=== PATIENT | male | born 1990 | race Caucasian/White ===

== ENCOUNTER 2023-03-25 06:52 | Day surgery (SDC) | payer OTHER, SELFPAY ==
[2023-03-19 15:17] VITALS: BMI 27.9
--- NOTE | 2023-03-25 | DI.RAD.S_ITS ---
PROCEDURE: XR ANKLE LT 2V INDICATIONS: ACHILLES REPAIR TECHNIQUE: Single intraoperative fluoroscopic spot film COMPARISON: None. FINDINGS: Single intraoperative fluoroscopic low resolution spot film shows instrumentation posterior to calcaneus and surgical soft tissue defect IMPRESSION: 1. Fluoroscopic guidance Approved by: Franky Emerson M.D. on 03/25/2023 at 19:37
[2023-03-25 07:46] VITALS: BP 129/86; PULSE 69; RESP 16; TEMP 36.1; O2SAT 98; BMI 27.9
--- NOTE | 2023-03-25 07:57 | PM.PREOP ---
Pre-operative Note Interval Note History & Physical reviewed/Exam performed by Physician: Yes Changes to H&P: No
[2023-03-25] MEDS: LACTATED RINGERS 1,000 ML 42 ML IV (07:59)
--- NOTE | 2023-03-25 08:07 | P.OP_ITS ---
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 He has a small posterior calcaneal enthesophyte and Nae lesion. MRI demonstrated substantial edema at the level of the enthesophyte and calcaneal Achilles insertion. He has had exhaustive conservative treatment for greater than 2 years that has been unable to run and get back to his activities. He has had extensive physical therapy heel lifts periods of boot wear and persistent symptoms. Due to edema at the location of his pain directly at the Achilles insertion on the heel and a negative Silfverskiold I have recommended a secondary Achilles tendon repair with Nae excision and reattachment of the Achilles tendon. The risks and benefits of the procedure have been discussed with the patient and given the opportunity to ask questions. The risks of surgery include but are not limited to infection, wound healing problems, persistence of pain, damage to nerves and blood vessels, generalized dissatisfaction with the procedure, DVT, PE, cardiopulmonary complications and . The patient expressed a thorough understanding of the risks and benefits of surgery and has elected to proceed. Consent was signed in the office. Surgeon: Paula Romero Click Yes if Unassisted: Yes Anesthesia Type: General, Peripheral nerve block and Local Operative Notes Findings: Distal insertional left Achilles tendinosis and enthesophyte, Nae lesion. Closure Type: primary Specimen(s): none sent Prosthetic devices, grafts, tissues, transplants, or devices: Arthrex SpeedBridge 4.75 SwiveLock x4 Estimated Blood Loss (mL): 5 Blood products transfused: none Tourniquet time (min): 39 Procedure in detail: Patient was seen in the preoperative area the site of surgery was marked informed consent confirmed. The patient was seen by the anesthesiologist and a regional block was placed for postoperative pain control. The patient was brought to the operating room and general anesthesia was administered. The patient was then positioned prone on the operative table. All bony prominences were well padded. A well-padded thigh tourniquet was placed. Left lower extremity was prepped and draped in standard sterile fashion a formal time-out procedure was performed confirming the patient's side and site of surgery administration of appropriate preoperative antibiotic. All were in agreement. The Esmarch was used for exsanguination and the tourniquet raised on the thigh to 250 mmHg. Attention was turned to the insertion of the Achilles on the heel. A midline incision was taken down through the skin and full-thickness distally. The Achilles tendon was split. And the paratenon layer was carefully retracted. Through the midline Achilles split tendinosis was shelled out and the accuses was peeled off of the calcaneal insertion. A deep fasciotomy was made to help arrest additional blood supply to the Achilles. The enthesophyte and Nae were exposed. Baby Hohmann retractors were fit medially and laterally to protect you the skin and soft tissue and bony TPS saw was used under fluoroscopic guidance to remove the Nae lesion and decompress the posterior heel. The power rasp was then used to smooth the edges with care taken to round off the medial and lateral corners of the calcaneus to remove a remaining sharp edges. Once this was completed the footprint for the Achilles was mapped out down onto the heel and marked out with 1 cm between the proximal and distal rows for the planned SpeedBridge repair. Four holes for the Spe edBridge were then drilled and tapped. Proximal SwiveLock were applied. Distal Achilles was debrided of tendinosis. No tendon transfer was indicated. The proximal rows were then brought through the distal medial and lateral Achilles stumps and the single stitches were used as spot welds and tied down. Next 1 blue and 1 white from each proximal row were taken across to the distal row and the distal SwiveLock was prepared and secured with the appropriate tension established in resting plantar flexion. The same was done for the remaining anchor securing the distal row of the insertional Achilles repair. This created an excellent secure foot print. Range of motion was tested and was appropriate for the ankle. The Hinojosa test demonstrated good plantar flexion. The midline split of the Achilles was then repaired with 0 Vicryl suture. The wound was carefully irrigated. Tourniquet was released hemostasis was achieved. The paratenon was repaired with 3-0 PDS the subcutaneous tissue with 4-0 Monocryl and the skin with 3-0 nylon suture. 15 cc of 0.25% Marcaine with epinephrine were injected for local anesthetic. A well-padded dressing with Xeroform gauze Webril and a posterior splint in resting plantar flexion was applied. Patient was then awoken from anesthesia and taken to the recovery unit in good condition there were no immediate complications with the procedure. All counts were correct. Complications: none Post-operative Condition: stable Disposition: PACU Plan for aftercare: The patient will be nonweightbearing in the splint for 2 weeks postop. After follow up in clinic sutures will be removed if appropriate the patient will be placed into a walking boot with heel lifts and start gradual progression of weight-bearing through the standard insertional Achilles protocol. Patient will utilize aspirin for DVT prophylaxis.
--- NOTE | 2023-03-25 08:40 | SUR.PREOP ---
Block start time [0850] . Monitoring initiated and maintained throughout procedure. Oxygen and medications given per anesthesiologist instructions. Patient remained stable throughout procedure, no adverse reactions noted. Block end time [0905]. See anesthesia documentation.
[2023-03-25] MEDS: CEFAZOLIN 2 GM/100 ML PREMIX 100 ML IV (09:30)
--- NOTE | 2023-03-25 09:52 | SUR.OPER ---
Prone on padded OR bed, head in foam head support, gel chest rolls, gel pad under knees, pillow under lower RIGHT leg WITH toes free of pressure. RIGHT LEG SECURED WITH CLOTH TAPE AND TOWEL. LEFT LOWER LEG PREPPED AND DRAPED IN FIELD. Arms secured on padded arm boards at <90 degrees abduction. Safety belt at thigh.
[2023-03-25] MEDS: BUPIVACAINE 0.25% (PF) 30 ML, EPINEPHrine 0.15 MG INJ (10:25)
[2023-03-25 10:45] VITALS: BP 120/85; PULSE 59; RESP 18; TEMP 36.4; O2SAT 98
[2023-03-25 10:52] VITALS: BP 116/75; PULSE 63; RESP 15; TEMP 36.6; O2SAT 98
[2023-03-25 11:01] VITALS: BP 118/80; PULSE 57; RESP 15; O2SAT 99
--- NOTE | 2023-03-25 14:33 | SUR.PHASEII ---
Report from Vinay WOODS. Pt in phase II ready for get dressed for discharge and instructions reviewed by Vinay WOODS. IV discharged by Eddie DOMINGUEZ. Pt discharged to home. Pt steady with walker and non-weight bearing.
== END 2023-03-25 11:25 | disposition home or self-care (01) ==
PROVIDERS: Referring Provider Orthopaedic Surgery Foot and Ankle Surgery; Visit Provider Orthopaedic Surgery Foot and Ankle Surgery
PROC: (CPT 27650; principal; 2023-03-25 08:45)
DX: M76.62 Achilles tendinitis, left leg (principal); M92.62 Juvenile osteochondrosis of tarsus, left ankle; S86.012A Strain of left Achilles tendon, initial encounter; X58.XXXA Exposure to other specified factors, initial encounter
CPT/HCPCS: 27654; 28118; 64450; 73600; 76000; C1713; J0171; J0690; J1100; J2250; J2405; J3010; J3490

== ENCOUNTER → 2023-09-15 07:14 | Outpatient (CLI) | payer OTHER, SELFPAY ==
--- NOTE | 2023-09-15 07:15 | DI.MRI.S_ITS ---
PROCEDURE: MR ANKLE LT WO CON INDICATIONS: PAIN IN LEFT ANKLE AND JOINTS OF LEFT FOOT TECHNIQUE: Noncontrast sagittal T1 spin echo and T2 fast spin echo with fat saturation, axial proton density fast spin echo and T2 fast spin echo with fat saturation, coronal T1 spin echo and T2 fast spin echo with fat saturation through the ankle/hindfoot. COMPARISON: [facility], MR, MR ANKLE LEFT WITHOUT CONTRAST, 12/12/2022, 8:01. [facility] [place], CR, XR ANKLE 1 OR 2 VIEWS WEIGHT BEARING LEFT, 02/17/2023, 14:21. FINDINGS: Image quality: Excellent. Bones: Susceptibility artifact and mild marrow edema is present at the posterior calcaneal body and tuberosity secondary to suture fixation of the distal Achilles tendon (07/29). Otherwise, the marrow signal is within normal limits. There is no acute fracture or dislocation. The lateral process of the talus and anterior process of the calcaneus are intact. There is no talar dome osteochondral defect. Joints: The tibiotalar and subtalar joints are preserved without any significant joint effusions. Sinus tarsi: The fat signal around the sinus tarsi is preserved. Syndesmotic ligaments: The anterior and posterior syndesmotic ligaments are preserved. Lateral collateral ligaments: There is thickening of the anterior and posterior talofibular ligaments. The calcaneofibular ligament is preserved. Deltoid ligament: The visualized components of the deltoid ligament, that being the posterior tibiotalar and tibiospring ligaments, are normal. Calcaneonavicular spring ligament: The superomedial component of the calcaneonavicular spring ligament is preserved. Tendons: The Achilles tendon is thickened with intermediate signal, measuring 1.7 cm in the maximum anterior-posterior dimension. Suture anchors fix the insertional Achilles tendon to the calcaneal tuberosity. The flexor and extensor tendons are within normal limits. The peroneal tendons are appropriately situated within the retro malleolar groove. The superficial peroneal retinaculum is intact. Plantar aponeurosis: There is no abnormal thickening of, abnormal intrasubstance involving, or perifascial edema about the plantar aponeurosis Plantar musculature: There are no denervation changes involving the plantar foot musculature. Nerves: The visualized ribs are within normal limits. IMPRESSION: 1. Status post presumed Achilles tendon repair with residual moderate tendinosis and reactive edema in the posterior calcaneus. 2. Prior lateral collateral ligament complex sprains. Dictated by: Gurinder Posey M.D. on 09/15/2023 at 16:46 Approved by: Gurinder Posey M.D. on 09/15/2023 at 17:00
== END ==
LOC: MRI 07:15
PROVIDERS: Referring Provider Orthopaedic Surgery Foot and Ankle Surgery; Visit Provider Orthopaedic Surgery Foot and Ankle Surgery
DX: S83.422A Sprain of lateral collateral ligament of left knee, initial encounter (principal); M25.472 Effusion, left ankle; M25.572 Pain in left ankle and joints of left foot
CPT/HCPCS: 73721

== ENCOUNTER → 2024-09-14 13:46 | Outpatient (CLI) | payer OTHER, SELFPAY ==
--- NOTE | 2024-09-14 13:48 | DI.MRI.S_ITS ---
PROCEDURE: MR ANKLE LT WO CON INDICATIONS: pain in left ankle TECHNIQUE: Noncontrast sagittal T1 spin echo and T2 fast spin echo with fat saturation, axial proton density fast spin echo and T2 fast spin echo with fat saturation, coronal T1 spin echo and T2 fast spin echo with fat saturation through the ankle/hindfoot. COMPARISON: [facility], MR, MR ANKLE LT WO CON, 09/15/2023, 7:32. FINDINGS: Image quality: Excellent. Bones and joints: Surgical anchors are seen in the posterior calcaneus related to Achilles tendon repair. There is surrounding osseous edema in the posterior calcaneus that has mildly decreased when compared to the MRI from 09/15/2023. No fracture line is seen. No hindfoot coalitions. No osteochondral injuries of the talar dome. Medial structures: The deltoid ligament and the spring ligament complex are intact. Mild distal posterior tibialis and flexor digitorum longus tenosynovitis. The flexor hallucis longus tendon is intact. The posterior tibial neurovascular bundle appears normal within the tarsal tunnel, without extrinsic mass effect. Lateral structures: Remote prior low-grade sprains of the anterior talofibular ligament and the calcaneofibular ligament. Posterior talofibular ligament is intact. The anterior and posterior tibiofibular ligaments are intact. Mild peroneus brevis and longus tendinosis. Mildly low lying peroneus brevis muscle belly, a normal variant. The sinus tarsi demonstrates normal fatty signal. Anterior structures: The tibialis anterior, extensor hallucis longus, and extensor digitorum longus tendons appear intact. Posterior and plantar structures: Postsurgical changes from Achilles tendon repair with thickening and mildly heterogeneous signal in the distal Achilles tendon. There is focal intrasubstance fluid signal that is new when compared to the prior MRI and could represent recurrent low-grade partial tearing. The proximal plantar fascia is intact. No abductor digiti minimi muscle atrophy to suggest Burgess neuropathy. IMPRESSION: 1. Postsurgical changes from distal Achilles tendon repair. New small focus of fluid signal at the distal insertion is suspicious for recurrent low-grade partial tearing. Mild osseous edema in the posterior calcaneus has decreased when compared to the prior MRI and may be related to postsurgical changes and healing versus mild traction trabecular bone injury. 2. Mild distal posterior tibialis and flexor digitorum longus tenosynovitis. 3. Remote prior low-grade sprains of the anterior talofibular ligament and calcaneofibular ligament. 4. Mild peroneus brevis and longus tendinosis. Approved by: Marko Green M.D. on 09/14/2024 at 16:52
== END ==
LOC: MRI 13:47
PROVIDERS: Referring Provider Podiatrist; Visit Provider Podiatrist
DX: M25.572 Pain in left ankle and joints of left foot (principal); M76.72 Peroneal tendinitis, left leg; Z98.890 Other specified postprocedural states; M25.472 Effusion, left ankle; M65.972 Unspecified synovitis and tenosynovitis, left ankle and foot; S93.402A Sprain of unspecified ligament of left ankle, initial encounter
CPT/HCPCS: 73721